=== PATIENT | female | born 1970 | race Caucasian/White ===

== ENCOUNTER 2019-03-27 21:03 | Emergency (ER) | payer OTHER ==
[~2019-03-27] VITALS: Ht 157.5 cm; Wt 106.1 kg
[~2019-03-27 21:03] MED LIST: AVAPRO300 MG; NORVASC10 MG; TOPROL XL100 M1
[2019-03-27] MEDS ORDERED: ALDACTAZIDE 251 EACH (21:18)
[2019-03-27] MEDS ORDERED: ZANTAC300 MG (21:18)
[2019-03-27] MEDS ORDERED: OMEPRAZOLE40 MG (21:18)
== END 2019-03-28 00:22 | disposition home or self-care (01) ==
LOC: ER 21:03
DX: R06.02 Shortness of breath (principal); R00.2 Palpitations